=== PATIENT | female | born 1970 | race Caucasian/White ===

== ENCOUNTER → 2018-02-25 | Outpatient (CLI) | payer OTHER ==
[~2018-02-25] MED LIST: ACET325 PO; ASPI325; Adderall 15 MG15 MG; B Complex1 EAC2 PO; BUSP10 PO; BUSP5; BUTALB-ACETAMI1 EACH PO; BUTASPCAFT; CALCAVITD PO; CHOL10002 PO; DESV50 PO; DIAZ5 PO; FETZIMA40 MG PO; Flonase 0.05% N16 GM; HYDACE5 PO; HYDR1TAB94 PO; KRILL OIL 1,001 EAC1 PO; METR500 PO; Maxalt Mlt10 MG PO; NYST100SU PO; ONDA4 PO; PRAHYD1AE TOP; PROM25 PO; PROM25S; Pataday2.5 ML; QUDEXY XR100 MG; RIZATRIPTAN10 MG PO; SACC250C PO; TOPI100 PO; VANC125 PO; WITHAZ50T TOP
== END ==
LOC: LAB SHORT 09:54 → LAB EV 09:54
DX: N60.01 Solitary cyst of right breast (principal)
CPT/HCPCS: 87070; 87205

== ENCOUNTER → 2022-10-10 | Outpatient (CLI) | payer OTHER | END | disposition home or self-care (01) | LOC: LAB SHORT 15:30 → LAB 15:30 | PROVIDERS: Family Medicine | DX: G89.4 Chronic pain syndrome (principal) | CPT/HCPCS: G0480 ==

== ENCOUNTER → 2023-07-09 | Outpatient (CLI) | payer OTHER | LOC: LAB 15:40 → LAB SHORT 15:40 | PROVIDERS: Family Medicine | DX: G89.4 Chronic pain syndrome (principal) | CPT/HCPCS: G0480 ==